=== PATIENT | male | born 1975 | race Caucasian/White ===

== ENCOUNTER 2017-03-10 08:12 | Emergency (ER) | payer OTHER ==
[~2017-03-10] VITALS: Ht 172.7 cm; Wt 76.0 kg
[2017-03-10 08:17] VITALS: BP 105/66
== END 2017-03-10 09:46 | disposition left against medical advice (07) ==
LOC: ER 09:19
DX: L02.416 Cutaneous abscess of left lower limb (principal); Z53.21 Procedure and treatment not carried out due to patient leaving prior to being seen by health care provider